=== PATIENT | male | born 2000 | race Caucasian/White ===

== ENCOUNTER 2025-05-31 12:46 | Emergency (ER) | payer BC, SELFPAY ==
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
--- NOTE | 2025-05-31 12:49 | ECG_ITS ---
Test Date: 2025-05-31 13:03:32 Measurements Intervals [place] Rate: 130 P: 190 [place]: 189 QRS: 25 QRSD: 96 T: 21 QT: 317 QTc: 467 Interpretive Statements SINUS TACHYCARDIA ABNORMAL RHYTHM ECG No previous ECG available for comparison Electronically Signed On 06-01-2025 11:33:20 CDT by Joaquim Crooks M.D.
--- OUTSIDE RECORDS SUMMARY | 2025-05-31 12:50 | XMS_ITS | Clinical Summary ---
Author Organization [facility] Address [address] [place] [address] Care Team Providers Care Knitter Wire Mesh Name Role Phone Adriana Iraheta MD Primary Care Provider [phone] Social History Tobacco Use Types Packs/Day Years Used Date Smoking Tobacco: Never Assessed Sex and Gender Information Value Date Recorded Sex Assigned at Not on file Legal Sex Male 11:41 AM CDT Gender Identity Not on file Sexual Orientation Not on file Plan of Treatment Health Maintenance Due Date Last Done Comments Annual Physical 2004 HPV Vaccines (1 - Male 3-dos e series) 2016 Meningococcal B Vaccine (1 o f 2 - Standard) 2017 Hepatitis C 2019 DTaP, Tdap and Td Vaccines ( 1 - Tdap) 2020 Hepatitis B Vaccines (1 of 3 - 19+ 3-dose series) 2020 COVID-19 Vaccine ( - 2023-2 5 season) 2024 Meningococcal Vaccine Aged Out No torey mariaelena eligible based on patient's age to complete this topic Pneumococcal Vaccine: Pediat rics (0 to 5 Years) and At-Risk Patients (6 to 49 Years) Aged Out No longer eligible b ased on patient's age to complete this topic RSV Immunizations Under 20 Months Aged Out No longer eligible based on patient's age to complete this topic [place] [address] [facility] Care Teams Knitter Wire Mesh Relationship Specialty Start Date End Date Adriana Iraheta MD [address] [facility] [address] [place] [address] PCP - General INTERNAL MEDICINE 02/02/24
--- OUTSIDE RECORDS SUMMARY | 2025-05-31 12:50 | XMS_ITS | Clinical Summary ---
Author Organization [facility] [employer] Address [address] [place] [address] Care Team Providers Care Ip Technology Transactions Attorney Name Role Phone Unavailable Primary Care Provider Unavailabl e Source Comments [facility],non-owned Affiliates and Associated Physician Practices is amultiple site organization consisting of ambulatory clinics and hospital sitesin [place], [place], [place] and [place]. This disclosure is being madepursuant to the Care Everywhere program and may not contain all information available regarding this patient. Last updated 18.[facility] [employer] Allergies Active Allergy Reactions Criticality Noted Date Comments Penicillins Urticaria Medium 01/21/2018 Medications * Be aware that medications may not be up to date on this document. Alwaysverify current medications with the patient. No known medications Social History Tobacco Use Types Packs/Day Years Used Date Smoking Tobacco: Passive Smo ke Exposure - Never Smoker Smokeless Tobacco: Never Sex and Gender Information Value Date Recorded Sex Assigned at Not on file Legal Sex Male 6:45 PM [employer]ES[employer] LO[employer] PROCESS[employer] Gender Identity Not on file Sexual Orientation Not on file Last Filed Vital Signs Vital Sign Reading Time Taken Comments Blood Pressure 100/62 01/21/2018 4:17 PM WHOLESALE LOAN PROCESSOR Pulse 74 01/21/2018 4:17 PM WHOLESALE LOAN PROCESSOR Temperature 36.9 C (98.4 F) 01/21/2018 4:17 PM WHOLESALE LOAN PROCESSOR Respiratory Rate 16 01/21/2018 4:17 PM WHOLESALE LOAN PROCESSOR Oxygen Saturation 98% 01/21/2018 4:17 PM WHOLESALE LOAN PROCESSOR Inhaled Oxygen Concentration - - Weight 89.4 kg (197 lb) 01/21/2018 4:17 PM WHOLESALE LOAN PROCESSOR Height 185.4 cm (6' 1) 01/21/2018 4:17 PM WHOLESALE LOAN PROCESSOR Body Mass Index 25.99 01/21/2018 4:17 PM WHOLESALE LOAN PROCESSOR Plan of Treatment Health Maintenance Due Date Last Done Comments HIV SCREENING 2016 HPV VACCINE (1 - Male 3-dose series) 2016 MENINGOCOCCAL (Group B) VACC INE SHARED DECISION-MAKING (1 of 2 - Standard) 2017 HEPATITIS C SCREENING 07/13/2019 DTAP/TDAP/TD VACCINES (1 - Tdap) 2020 HEPATITIS B VACCINE (1 of 3 - 19+ 3-dose series) 2020 COVID-19 VACCINE (1 - 2023-2 5 season) 2024 DEPRESSION SCREENING 11/23/2024 INFLUENZA VACCINE (#1) 2025 ZOSTER VACCINE (1 of 2) 2051 HIB VACCINE Aged Out No longer eligi ble based on patient's age to complete this topic MENINGOCOCCAL GROUPS A/C/Y/W VACCINE Aged Out No longer eligible b ased on patient's age to complete this topic PNEUMOCOCCAL VACCINE Aged Out No long er eligible based on patient's age to complete this topic
[2025-05-31 12:51] VITALS: BP 174/113; PULSE 133; RESP 20; O2SAT 100
[2025-05-31] MEDS: LACTATED RINGERS 1,000 ML 999 ML IV CONT ×2 (12:59→14:24)
[2025-05-31 13:11] LABS: Hematocrit 46.3 % (42.0-52.0); Hemoglobin 15.7 g/dL (14.0-18.0); Immature Granulocyte Percent A 0.7 % (0-0.5); Lymphocytes Absolute Auto 3.65 K/mm3 (0.9-3.2); Mean Corpuscular HGB Conc 33.9 g/dl (32-36); Mean Corpuscular Hemoglobin 27.4 pg (26-34); Mean Corpuscular Volume 80.7 fl (80-100); Nucleated Red Blood Cells Absolute Auto 0.000 K/mm3 (0.0-0.012); Nucleated Red Blood Cells Perc 0.0 % (0.0-0.2); Platelet Count Result 262 k/mm3 (150-375); Red Blood Count 5.74 M/mm3 (4.6-6.20); White Blood Count 13.1 K/mm3 (4.5-10.0)
[2025-05-31 13:21] LABS: Alanine Aminotransferase 143 U/L (6-50); Albumin Level 4.7 g/dL (3.5-5.1); Alkaline Phosphatase 144 U/L (38-126); Anion Gap 11 mmol/L (4-12); Aspartate Amino Transferase 105 U/L (17-59); Bilirubin,Total 0.4 mg/dL (0.2-1.3); Blood Urea Nitrogen 7 mg/dL (9-20); Calcium 10.2 mg/dL (8.4-10.2); Carbon Dioxide 25 mmol/L (22-30); Chloride 105 mmol/L (98-107); Estimated Glomerular Filt Rate > 60; Glucose 111 mg/dL (65-110); Lipase 73 U/L (23-300); Potassium 4.1 mmol/L (3.4-5.0); Sodium 141 mmol/L (137-145); Total Protein 8.7 g/dL (6.3-8.2)
[2025-05-31 13:25] LABS: INR 1.0; Prothrombin Time 13.4 Seconds (11.1-14.7)
[2025-05-31 13:26] LABS: Partial Thromboplastin Time 28.7 Seconds (22.3-36.8)
[2025-05-31] MEDS: LORazepam INJ (*CRX) 2 MG/ML VIAL 1 MG IV PUSH (13:32)
[2025-05-31 13:33] LABS: Troponin I < 0.012 ng/mL (0.000-0.034)
--- NOTE | 2025-05-31 13:45 | ED.GENADULT ---
HPI - General Adult General Chief complaint: Chest Pain Stated complaint: stabbing chest pain, palpitations Time Seen by Provider: 05/31/25 12:51 History of Present Illness HPI narrative: 24-year-old male present to the emergency department for evaluation for left-sided chest pain with associated anxiety. Patient reports he does have a longstanding history of anxiety. Patient also reports that he did have approximately 15 beers and suspects he may be dehydrated. Patient was working in the sun today. Began having increased heart rate and left-sided chest pain. Upon arrival to the emergency department patient reports he does feel improved. Patient denies any current chest pain. Patient was anxious appearing. Patient does take BuSpar, Lexapro, metoprolol Related Data Allergies Allergy/AdvReac Type Severity Reaction Status Date / Time Penicillins Allergy Unknown Unknown Verified 08/10/19 20:50 Review of Systems Review of Systems: All systems reviewed & are unremarkable except as noted in HPI and below Exam Narrative: APPEARANCE: Well appearing, no pain, no distress, well-nourished. HEAD: normocephalic, atraumatic. EYES: PERRLA/EOMI, conjunctivae clear. NOSE: Normal no drainage EARS:TMS clear with good light reflex. THROAT: Pharynx clear, no exudate. NECK: Supple. No adenopathy, no masses. RESPIRATORY: Airway patent, respirations nonlabored. Clear to auscultation bilaterally, no rales, rhonchi, wheezing. CARDIOVASCULAR: Regular rate and rhythm without murmurs rubs or gallops. ABDOMINAL: Soft, nontender, nondistended, normal bowel sounds MUSCULOSKELETAL: Moves all extremities. Strength/ROM intact, No edema, No calf tenderness. NEURO: Alert. Cranial nerves II through XII intact. Good gait. Good coordination SKIN: Warm, dry. Normal Color PSYCHIATRIC: Mildly anxious affect Course Vital Signs Vital signs: Vital Signs Pulse Rate 133 H 05/31/25 12:51 Respiratory Rate 05/31/25 12:51 Blood Pressure 174/113 H 05/31/25 12:51 Pulse Oximetry 100 05/31/25 12:51 Oxygen Delivery Room Air 05/31/25 12:51 Temperature 98.0 F 05/31/25 14:25 Pulse Rate 118 H 05/31/25 14:25 Respiratory Rate 05/31/25 14:25 Blood Pressure 132/83 05/31/25 14:25 Pulse Oximetry 100 05/31/25 14:25 Oxygen Delivery Room Air 05/31/25 12:51 Medical Decision Making [facility] Narrative Medical decision making narrative: 24-year-old male presents to the emergency department for evaluation for heart palpitations and chest pain. Patient is afebrile but does have a leukocytosis of 13.1. Hemoglobin of 15.7. Patient's INR is 1.0. Patient's D-dimer was 0.30. No significant acute abnormalities his electrolytes, patient has a normal T bili but does have mild elevated AST ALT and alk-phos, slight be secondary to alcohol intoxication. Patient has negative lipase. Patient's troponin was negative. Low concern for ACS. No concern for pulmonary embolism with a negative dimer. Patient did feel improved with treatment of 2 L of lactated Ringer's. Chest x-ray shows no acute process. Differential Diagnosis Differential Diagnosis: Anxiety, dehydration, pulmonary embolism, pneumonia, tachycardia Vital Signs Vital Signs: Vital Signs Pulse Rate 133 H 05/31/25 12:51 Respiratory Rate 05/31/25 12:51 Blood Pressure 174/113 H 05/31/25 12:51 Pulse Oximetry 100 05/31/25 12:51 Oxygen Delivery Room Air 05/31/25 12:51 Temperature 98.0 F 05/31/25 14:25 Pulse Rate 118 H 05/31/25 14:25 Respiratory Rate 20 05/31/25 14:25 Blood Pressure 132/83 05/31/25 14:25 Pulse Oximetry 100 05/31/25 14:25 Oxygen Delivery Room Air 05/31/25 12:51 Lab Data Lab results reviewed: Yes I reviewed the patient's lab results. 05/31/25 13:02 05/31/25 13:02 Labs: Lab Results 05/31/25 05/31/25 05/31/25 Range/Units 13:02 13:02 13:02 WBC 13.1 H (4.5-10.0) K/mm3 RBC 5.74 (4.6-6.20) M/mm3 Hgb 15.7 (14.0-18.0) g/dL Hct 46.3 (42.0-52.0) % MCV 80.7 (80-100) fl MCH 27.4 (26-34) pg MCHC 33.9 (32-36) g/dl RDW 12.4 (11.5-14.5) % Plt Count 262 (150-375) k/mm3 MPV 11.1 H (7.4-10.4) fl Immature Gran % (Auto) 0.7 H (0-0.5) % Neut % (Auto) 63.9 (45.5-73.1) % Lymph % (Auto) 27.8 (18.3-44.2) % Sioux % (Auto) 6.3 (2.6-8.5) % Eos % (Auto) 0.7 (0-4.4) % Baso % (Auto) 0.6 (0.2-1.2) % Lymph # (Auto) 3.65 H (0.9-3.2) K/mm3 [place]oux # (Auto) 0.8 H (0.1-0.6) K/mm3 Eos # (Auto) 0.1 (0-0.3) K/mm3 Baso # (Auto) 0.1 (0.0-0.1) K/mm3 Abs Immat Gran (auto) 0.09 H (0.00-0.031) K/mm3 Absolute Neuts (auto) 8.4 H (1.3-6.7) K/mm3 Absolute Nucleated RBC 0.000 (0.0-0.012) K/mm3 Nucleated RBC % 0.0 (0.0-0.2) % PT 13.4 (11.1-14.7) Seconds INR 1.0 APTT 28.7 (22.3-36.8) Seconds D-Dimer 0.30 Cancelled (<0.48) ug/mL Sodium 141 (137-145) mmol/L Potassium 4.1 (3.4-5.0) mmol/L Chloride 105 (98-107) mmol/L Carbon Dioxide 25 (22-30) mmol/L Anion Gap 11 (4-12) mmol/L BUN 7 L (9-20) mg/dL Creatinine 0.94 (0.7-1.3) mg/dL Estim Creat Clear Calc Not Reportable Estimated GFR > 60 (59 - ) Glucose 111 H (65-110) mg/dL Calcium 10.2 (8.4-10.2) mg/dL Total Bilirubin 0.4 (0.2-1.3) mg/dL AST 105 H (17-59) U/L ALT 143 H (6-50) U/L Alkaline Phosphatase 144 H (38-126) U/L Troponin I < 0.012 Cancelled (0.000-0.034) ng/mL Total Protein 8.7 H (6.3-8.2) g/dL Albumin 4.7 (3.5-5.1) g/dL Lipase 73 (23-300) U/L Imaging Data Radiologist's impression: Impressions Chest X-Ray 05/31/25 13:35 IMPRESSION: No acute process. ECG Data EKG #1: EKG Interpretation: tachycardia, sinus rhythm, no ectopy, no ST changes, normal QRS, normal QT and NL axis Discharge Plan Discharge Clinical Impression: Chest pain, Heart palpitations, Dehydration Patient Disposition: Home Condition: Stable Instructions: Antibiotic Form, Chest Pain (ED), Heart Palpitations (DC) Additional Instructions: Drink plenty of fluids. Avoid alcohol consumption. Have close follow-up with your primary care physician for additional outpatient testing. Patient Language: Northern Irish Follow-up/Referrals: PHYSICIAN NOT ON STAFF,NONSTAFF [Primary Care Provider] - Stand Alone Forms: Work/School Release IP
--- OUTSIDE RECORDS SUMMARY | 2025-05-31 13:53 | XMS_ITS | Clinical Summary ---
Author Organization [facility] Address [address] [place] [address] Care Team Providers Care Lathe Machinist Name Role Phone Adriana Iraheta MD Primary Care Provider [phone] Social History Tobacco Use Types Packs/Day Years [...] to complete this topic [place] [address] [place] [address] [facility] Care Teams Lathe Machinist Relationship Specialty Start Date End Date Adriana Iraheta MD [address] [facility] [address] [place] [address] PCP - General INTERNAL MEDICINE 02/02/24
--- OUTSIDE RECORDS SUMMARY | 2025-05-31 13:53 | XMS_ITS | Clinical Summary ---
Author Organization [facility] [employer] Address [address] [place] [address] Care Team Providers Care Supportability Engineer Name Role Phone Unavailable Primary Care Provider Unavailabl e Source Comments [facility],non-owned Affiliates and Associated Physician Practices is amultiple site organization consisting of ambulatory clinics and hospital sitesin [place], [place], [place] and [place]. This disclosure is being madepursuant to the Care Everywhere program and may not contain all information available regarding this patient. Last updated 18.[facility] [employer] Allergies Active Allergy Reactions Criticality Noted Date [...] on file Legal Sex Male 6:45 PM [employer] Gender Identity Not on file Sexual Orientation Not on file Last Filed Vital Signs Vital Sign Reading Time Taken Comments Blood Pressure 100/62 01/21/2018 4:17 PM [employer] Pulse 74 01/21/2018 4:17 PM [employer] Temperature 36.9 C (98.4 F) 01/21/2018 4:17 PM [employer] Respiratory Rate 16 01/21/2018 4:17 PM [employer] Oxygen Saturation 98% 01/21/2018 4:17 PM [employer] Inhaled Oxygen Concentration - - Weight 89.4 kg (197 lb) 01/21/2018 4:17 PM [employer] Height 185.4 cm (6' 1) 01/21/2018 4:17 PM [employer] Body Mass Index 25.99 01/21/2018 4:17 PM [employer] Plan of Treatment Health Maintenance Due Date [...]
--- OUTSIDE RECORDS SUMMARY | 2025-05-31 13:54 | XMS_ITS | Data Portability ---
Author Organization [facility], [employer] Address [address] [place] [address] Assessment Encounter Date Assessment Date Assessment LastModified by Organization Details LastModified Time 01/04/2024 01/04/2024 New patient presented for admission to the practice. Studies ordered as below. Discussed plan with patient, who expressed understanding . Follow up as noted below. [email or web address] Not available 01/04/2024 15:08:00 02/10/2024 02/10/2024 Patient presented for follow up. Studies ordered as below. Discussed plan with patient/cony resendez, who expressed understanding . Follow up as noted below. Not available 02/10/2024 09:22:21 05/18/2025 05/18/2025 Patient presented for follow up. Studies ordered as below. Discussed plan with patient/careg dipti, who expressed understanding . Follow up as noted below. Not available 05/18/2025 14:03:18 Plan of Treatment Reminders Order Date Submit Date Provider Last Modified By Organization Details Last Modified Time Details Appointments ESTABLISH ED PATIENT 15 2024 01:15P Duran Iraheta MD Not available Not available Not available Lab lipid panel w/ direct LDL, serum 2024 025 [facility], [address], [place], [address], 05/18/2025 14:35:22 TSH + free T4, serum 2024 025 [facility], [address], [place], [address], 05/18/2025 14:35:21 D-dimer, quant, plasma 2024 025 [facility], [address], [place], [address], 05/18/2025 14:35:20 CMP, serum or plasma 2024 025 [facility], [address], [place], [address], 05/18/2025 14:35:21 CBC w/ auto diff 2024 025 [facility], [address], [place], [address], 05/18/2025 14:35:21 wbc, stool 2024 025 [facility], [address] [facility], [place], [address], 05/18/2025 14:45:26 amylase + lipase, serum 2024 025 [facility], [address] [facility], [place], [address], 05/18/2025 14:45:27 D-dimer, quant, plasma 2023 024 [facility], [address], [place], [address], 02/10/2024 09:56:08 CMP, serum or plasma 2023 024 [facility], [address], [place], [address], 02/12/2024 11:17:39 CBC w/ auto diff 2023 024 [facility], [address], [place], [address], 03/17/2024 00:32:06 lipid panel w/ direct LDL, serum 2023 024 [facility], [address] [facility], [place], [address], 01/12/2024 06:14:13 hepatitis C Ab, serum 2023 024 [facility], [address] [facility], [place], [address], 01/12/2024 06:14:13 CMP, serum or plasma 2023 024 [facility], [address] [facility], [place], [address], 01/12/2024 16:33:00 TSH + free T4, serum 2023 024 [facility], [address] [facility] [facility], [place], [address], 01/12/2024 06:14:13 CBC w/ auto diff 2023 024 [facility], [address] [facility], [place], [address], 03/17/2024 00:38:13 magnesium , serum or plasma 2023 024 [facility], [address] [facility], [place], [address], 03/17/2024 00:29:11 TSH, serum or plasma 2023 024 [facility], [address] [facility], [place], [address], 01/12/2024 06:14:13 hemoglobi n A1c, QN, blood 2023 024 [facility], [address] [facility], [place], [address], 01/12/2024 06:14:13 Referral psychiatr ist referral 2024 025 [email or web address] Marques Brito MD, [address], [address], [place], [address], 05/18/2025 14:49:35 cardiolog ist referral 2024 025 farzana Lara MD, [address] [place], [address], 05/18/2025 14:49:35 pulmonolo gist referral 2024 025 [email or web address] Johnny Kearns MD, [address] [place], [address], 05/18/2025 14:49:35 cardiolog ist referral 2023 024 MORENA Lara MD, [address] [place], [address], 02/04/2025 04:03:20 otolaryng ologist referral 2023 024 MORENA Mann MD, [address] [place], [address], 12/29/2024 07:19:[address] referral 2023 024 MORENA Not available 12/29/2024 07:19:14 cardiolog ist referral 2023 024 MORENA Bruce MD, [address], [place], [address], 12/29/2024 07:19:14 dermatolo gist referral [address] [facility], [address] , [place], [address], 12/29/2024 07:19:15 Procedures None recorded. Surgeries None recorded. Imaging XR, chest, 2 view 2024 025 [facility]), [address] , [address], [place], [address], 05/25/2025 07:17:57 XR, chest, 2 view 2023 024 MORENA Not available 02/17/2024 04:11:55 US, echocardi ogram 2023 024 [facility], [facility], [address], [place], [address], 02/10/2024 11:38:34 XR, chest, 2 view 2023 024 MORENA Not available 01/11/2024 04:10:40 electroca rdiogram 2023 024 [facility], [facility], [address], [place], [address], 01/05/2024 09:00:27 US, echocardi ogram 2023 024 [facility], [facility], [address], [place], [address], 01/04/2024 18:55:42 home sleep study 2023 024 [facility], [address], [address], [place], [address], 02/09/2024 10:16:57 Medication Orders Vraylar 1.5 mg capsule 2024 025 [facility] #[id number], [address], [place], [address], 05/24/2025 20:54:59 metoprolo l succinate ER 25 mg tablet,ex tended release 24 hr 2024 025 [facility] #[id number], [address], [place], [address], 05/18/2025 14:34:47 metoprolo l succinate ER 25 mg tablet,ex tended release 24 hr 2023 024 [id number], [address], [place], [address], 02/10/2024 09:54:55 Saline Mist 0.65 % nasal spray aerosol 2023 024 [id number], [address], [place], [address], 02/10/2024 09:43:47 escitalop kirit 10 mg tablet 2023 024 [id number], [address], [place], [address], 01/04/2024 15:32:56 buspirone 10 mg tablet 2023 024 [id number], [address], [place], [address], 01/04/2024 15:32:56 metoprolo l succinate ER 25 mg tablet,ex tended release 24 hr 2023 024 [id number], [address], [place], [address], 01/04/2024 15:32:55 Patient TargetsNo targets recorded. Patient Instructions Encounter Date Encounter Id Patient Instructions Last Modified By Organization Details Last Modified Time 01/04/2024 [id number] smoking cessatio n counseling, greater than 3 minutes up to 10 minutes* [email or web address] Not available 01/05/2024 15:53:58 spirometry testing* MORENA Not available 01/04/2024 19:37:58 infection from tattoos: care instructions [email or web address] Not available 01/04/2024 15:32:49 snoring: care instructions mshenouda Not available 01/04/2024 15:32:50 body mass index: care instructions [email or web address] Not available 01/04/2024 15:32:49 learning about healthy weight mshenouda Not available 01/04/2024 15:32:50 02/10/2024 [id number] body mass index: care instructions [email or web address] Not available 02/10/2024 09:55:42 learning about healthy weight mshenouda Not available 02/10/2024 09:55:42 05/18/2025 [id number] smoking cessatio n counseling, greater than 3 minutes up to 10 minutes* [email or web address] Not available 05/18/2025 14:35:06 snoring: care instructions [email or web address] Not available 05/18/2025 14:34:45 body mass index: care instructions [email or web address] Not available 05/18/2025 14:34:45 learning about healthy weight mshenouda Not available 05/18/2025 14:34:45 Reason for Referral Wheel Alignment Mechanic Referral for Ta chycardia Referring Physician: Adriana Iraheta [facility], Encounter Date: 01/04/2024 Soil Analyst Referral for Ben lt health examination Referring Physician: Adriana Iraheta [facility], Encounter Date: 01/04/2024 Barrow Worker Referral fo r Anterior epistaxis Referring Physician: Adriana Iraheta [facility], Encounter Date: 01/04/2024 Health Outcomes Liaison Referral for A cne Referring Physician: Adriana Iraheta [facility], Encounter Date: 01/04/2024 Wheel Alignment Mechanic Referral for Ta chycardia Referring Physician: Adriana Iraheta [facility], Encounter Date: 02/10/2024 Wheel Alignment Mechanic Referral for Ta chycardia Referring Physician: Adriana Iraheta [facility], Encounter Date: 05/18/2025 Mirror Painter Referral for S noring Referring Physician: Adriana Iraheta [facility], Encounter Date: 05/18/2025 Psychiatrist Referral for Mi xed anxiety and depressive disorder Referring Physician: Adriana Iraheta [facility], Encounter Date: 05/18/2025 Results Created Date Observation Date Name Description Value Unit Range Abnormal Flag Note LastModifiedBy Organization Detail LastModifiedTime 01/04/20 24 01/04/2024 edmundo metry testi ng* Spirometry Not Available [facility], [facility] [address], [place], [address], 01/04/2024 15:15:01 01/11/20 24 01/11/2024 HEMOG LOBIN A1C hemoglobin A1C 5.7 % 4.8-5. 6 high SYLVIA L RANGE BASED ON DEDE COL 2 (DCCT /NGSP ): Non-D iabet ic: < 5.7% Pre-D iabet es: 5.7 - 6.4% Diabe julianne: => 6.5% GLYCE GERARD CONTR OL: < 7.0% Not Available [facility] [address], [place], [address], 01/12/2024 16:32:59 01/11/20 24 01/11/2024 HEMOG LOBIN A1C estimated average glucose 118 Not Available [facility] [address], [place], [address], 01/12/2024 16:32:59 01/11/20 24 01/11/2024 CBC WITH AUTO- DIFFE RENTI AL WBC 11.0 10*3/ uL 3.4-10 .8 high Not Available [facility] [address], [place], [address], 01/12/2024 16:33:00 01/11/20 24 01/11/2024 CBC WITH AUTO- DIFFE RENTI AL RBC 5.39 10*6/ uL 4.20-5 .80 Not Available [facility] [address], [place], [address], 01/12/2024 16:33:00 01/11/20 24 01/11/2024 CBC WITH AUTO- DIFFE RENTI AL HGB 15.5 g/dL 12.6-1 7.7 Not Available [facility] [address] [facility] [address], [place], [address], 01/12/2024 16:33:00 01/11/20 24 01/11/2024 CBC WITH AUTO- DIFFE RENTI AL HCT 44.9 % 37.5-5 1.0 Not Available [facility] [address] [facility] [address], [place], [address], 01/12/2024 16:33:00 01/11/20 24 01/11/2024 CBC WITH AUTO- DIFFE RENTI AL MCV 83 fL 79-97 Not Available [facility] [address] [facility] [address], [place], [address], 01/12/2024 16:33:00 01/11/20 24 01/11/2024 CBC WITH AUTO- DIFFE RENTI AL MCH 28.8 pg 26.6-3 3.0 Not Available [facility] [address] [facility] [address], [place], [address], 01/12/2024 16:33:00 01/11/20 24 01/11/2024 CBC WITH AUTO- DIFFE RENTI AL MCHC 34.5 g/dL 31.5-3 5.7 Not Available [facility] [address], [place], [address], 01/12/2024 16:33:00 01/11/20 24 01/11/2024 CBC WITH AUTO- DIFFE RENTI AL RDW 11.9 % 11.5-1 4.5 Not Available [facility] [address] [facility] [address], [place], [address], 01/12/2024 16:33:00 01/11/20 24 01/11/2024 CBC WITH AUTO- DIFFE RENTI AL platelets 276 10*3/ uL 150-40 0 Not Available [facility] [address], [place], [address], 01/12/2024 16:33:00 01/11/20 24 01/11/2024 CBC WITH AUTO- DIFFE RENTI AL MPV 13 fL 9-13 Not Available [facility] [address] [facility] [address], [place], [address], 01/12/2024 16:33:00 01/11/20 24 01/11/2024 CBC WITH AUTO- DIFFE RENTI AL neutrophils 55.5 % 40.0-7 4.0 Not Available [facility] [address] [facility] [address], [place], [address], 01/12/2024 16:33:00 01/11/20 24 01/11/2024 CBC WITH AUTO- DIFFE RENTI AL absolute neutrophils 6.13 10*3/ uL 1.40-7 .00 Not Available [facility] [address] [facility] [address], [place], [address], 01/12/2024 16:33:00 01/11/20 24 01/11/2024 CBC WITH AUTO- DIFFE RENTI AL lymphocytes 36.3 % 14.0-4 6.0 Not Available [facility] [address] [facility] [address], [place], [address], 01/12/2024 16:33:00 01/11/20 24 01/11/2024 CBC WITH AUTO- DIFFE RENTI AL absolute lymphocytes 4.00 10*3/ uL 0.70-3 .10 high Not Available [facility] [address] [facility] [address], [place], [address], 01/12/2024 16:33:00 01/11/20 24 01/11/2024 CBC WITH AUTO- DIFFE RENTI AL monocytes 6.4 % 4.0-12 .0 Not Available [facility] [address] [facility] [address], [place], [address], 01/12/2024 16:33:00 01/11/20 24 01/11/2024 CBC WITH AUTO- DIFFE RENTI AL absolute monocytes 0.70 10*3/ uL 0.10-0 .90 Not Available [facility] [address] [facility] [address], [place], [address], 01/12/2024 16:33:00 01/11/20 24 01/11/2024 CBC WITH AUTO- DIFFE RENTI AL eosinophils 0.5 % 0.0-5. [address] [facility] [address] [facility] [address], [place], [address], 01/12/2024 16:33:00 01/11/20 24 01/11/2024 CBC WITH AUTO- DIFFE RENTI AL absolute eosinophils 0.05 10*3/ uL 0.00-0 .40 Not Available [facility] [address] [facility] [address], [place], [address], 01/12/2024 16:33:00 01/11/20 24 01/11/2024 CBC WITH AUTO- DIFFE RENTI AL basophils 0.9 % 0.0-3. [address] [facility] [address] [facility] [address], [place], [address], 01/12/2024 16:33:00 01/11/20 24 01/11/2024 CBC WITH AUTO- DIFFE RENTI AL absolute basophils 0.10 10*3/ uL 0.00-0 .[address] [facility] [address] [facility] [address], [place], [address], 01/12/2024 16:33:00 01/11/20 24 01/11/2024 CBC WITH AUTO- DIFFE RENTI AL imm. gran. 0.4 % 0.0-2. 0 Not Available [facility] [address] [place] [address] [address], [place], [address], 01/12/2024 16:33:00 01/11/20 24 01/11/2024 CBC WITH AUTO- DIFFE RENTI AL abs. imm. gran. 0.04 10*3/ uL 0.00-0 .10 Not Available [facility] [address] [facility] [address], [place], [address], 01/12/2024 16:33:00 01/11/20 24 01/11/2024 COMPR EHENS ELIU METAB OLIC PANEL sodium 143 mmol/ L 134-14 4 Not Available [facility] [address] [facility] [address], [place], [address], 01/12/2024 16:33:00 01/11/20 24 01/11/2024 COMPR EHENS ELIU METAB OLIC PANEL potassium 4.1 mmol/ L 3.5-5. 2 Not Available [facility] [address] [facility] [address], [place], [address], 01/12/2024 16:33:00 01/11/20 24 01/11/2024 COMPR EHENS ELIU METAB OLIC PANEL chloride 104 mmol/ L 97-108 Not Available [facility] [address] [facility], [place], [address], 01/12/2024 16:33:00 01/11/20 24 01/11/2024 COMPR EHENS ELIU METAB OLIC PANEL carbon dioxide (co2) 24.0 mmol/ L 18.0-2 9.0 Not Available [facility] [address] [facility] [address], [place], [address], 01/12/2024 16:33:00 01/11/20 24 01/11/2024 COMPR EHENS ELIU METAB OLIC PANEL glucose 90 mg/dL 65-99 Sylvia l Fasti ng: < 100 mg/dL Impai red Fasti n - 125 mg/dL Diagn ostic of Diabe julianne: => 126 mg/dL Ameri can Diabe julianne Assoc iatio n, 2008 Not Available [facility] [address] [facility] [address], [place], [address], 01/12/2024 16:33:00 01/11/20 24 01/11/2024 COMPR EHENS ELIU METAB OLIC PANEL urea nitrogen (BUN) 9 mg/dL 6-20 Not Available [facility] [address], [place], [address], 01/12/2024 16:33:00 01/11/20 24 01/11/2024 COMPR EHENS ELIU METAB OLIC PANEL creatinine 1.31 mg/dL 0.76-1 .27 high Not Available [facility] [address] [facility] [address], [place], [address], 01/12/2024 16:33:00 01/11/20 24 01/11/2024 COMPR EHENS ELIU METAB OLIC PANEL eGFR for nonafrican AM 68 mL/mi nute/ 1.73_ m2 >59 Not Available [facility] [address] [facility] [address], [place], [address], 01/12/2024 16:33:00 01/11/20 24 01/11/2024 COMPR EHENS ELIU METAB OLIC PANEL eGFR for AM 83 mL/mi nute/ 1.73_ m2 >59 MDRD Study Equat ion: The calcu lated GFR is NOT appli cable for pedia tric (< 18 years old) and > 70 year old patie nts and patie nts that are NOT of [place] . Not Available [facility] [address] [facility] [address], [place], [address], 01/12/2024 16:33:00 01/11/20 24 01/11/2024 COMPR EHENS ELIU METAB OLIC PANEL calcium 10.7 mg/dL 8.7-10 .2 high Not Available [facility] [address] [facility] [address], [place], [address], 01/12/2024 16:33:00 01/11/20 24 01/11/2024 COMPR EHENS ELIU METAB OLIC PANEL protein, total 7.4 gm/dL 6.4-8. 3 Not Available [facility] [address] [facility] [address], [place], [address], 01/12/2024 16:33:00 01/11/20 24 01/11/2024 COMPR EHENS ELIU METAB OLIC PANEL albumin 4.8 gm/dL 3.5-5. [address] [facility] [address] [facility] [address], [place], [address], 01/12/2024 16:33:00 01/11/20 24 01/11/2024 COMPR EHENS ELIU METAB OLIC PANEL bilirubin, total 0.60 mg/dL 0.00-1 .[address] [facility] [address] [facility] [address], [place], [address], 01/12/2024 16:33:00 01/11/20 24 01/11/2024 COMPR EHENS ELIU METAB OLIC PANEL alkaline phosphatase (ALP) 107 U/L 39-117 Not Available [facility] [address] [facility] [address], [place], [address], 01/12/2024 16:33:00 01/11/20 24 01/11/2024 COMPR EHENS ELIU METAB OLIC PANEL aspartate aminotransfe rase (AST) 35 U/L 0-40 Not Available [facility] [address] [facility] [address], [place], [address], 01/12/2024 16:33:00 01/11/20 24 01/11/2024 COMPR EHENS ELIU METAB OLIC PANEL alanine aminotransfe rase (ALT) 61 U/L 0-41 high Not Available [facility] [address] [facility] [address], [place], [address], 01/12/2024 16:33:00 01/11/20 24 01/11/2024 COMPR EHENS ELIU METAB OLIC PANEL A/G ratio (calculated) 1.8 ratio 1.0-2. [address] [facility] [address] [facility] [address], [place], [address], 01/12/2024 16:33:00 01/11/20 24 01/11/2024 COMPR EHENS EILU METAB OLIC PANEL globulin (calculated) 2.6 gm/dL 1.5-3. 8 Not Available [facility] [address] [facility] [address], [place], [address], 01/12/2024 16:33:00 01/11/20 24 01/11/2024 COMPR EHENS ELIU METAB OLIC PANEL BUN/creatini ne ratio (calculated) 6.9 ratio 8.0-20 .0 low Not Available [facility] [address] [facility] [address], [place], [address], 01/12/2024 16:33:00 01/11/20 24 01/11/2024 COMPR EHENS ELIU METAB OLIC PANEL serum hemolysis index NORMAL index normal Not Available [facility] [address] [facility] [address], [place], [address], 01/12/2024 16:33:00 01/11/20 24 01/11/2024 FREE T4 thyroxine (T4), free 1.29 NG/dL 0.82-1 .77 Not Available [facility] [address] [facility] [address], [place], [address], 01/12/2024 16:33:01 01/11/20 24 01/11/2024 HEPAT ITIS C VIRUS (HCV) ANTIB ALCON HCV Ab, qualitative NON-RE ACTIVE non-re active All first time posit eliu HCV antib alcon test is confi rmed with HCV Nucle ic Acid Ampli catio n (RENE) test per CDC recom menda tion. Not Available [facility] [address] [facility] [address], [place], [address], 01/12/2024 16:33:01 01/11/20 24 01/11/2024 LIPID PANEL W/ CALC. LDL cholesterol, total 144 mg/dL 100-19 9 Not Available [facility] [address] [facility] [address], [place], [address], 01/12/2024 16:33:02 01/11/20 24 01/11/2024 LIPID PANEL W/ CALC. LDL HDL cholesterol 37 mg/dL =>40 Not Available [facility] [address] [facility] [address], [place], [address], 01/12/2024 16:33:02 01/11/20 24 01/11/2024 LIPID PANEL W/ CALC. LDL LDL cholesterol (calculated) 87 mg/dL 0-99 Not Available [facility] [address] [facility] [address], [place], [address], 01/12/2024 16:33:02 01/11/20 24 01/11/2024 LIPID PANEL W/ CALC. LDL triglyceride s 99 mg/dL 50-149 Not Available [facility] [address] [facility] [address], [place], [address], 01/12/2024 16:33:02 01/11/20 24 01/11/2024 LIPID PANEL W/ CALC. LDL chol/HDL ratio (calculated) 3.89 ratio 0.00-5 .00 Not Available [facility] [address] [facility] [address], [place], [address], 01/12/2024 16:33:02 01/11/20 24 01/11/2024 LIPID PANEL W/ CALC. LDL VLDL cholesterol (calculated) 20 mg/dL 5-40 Not Available [facility] [address] [facility] [address], [place], [address], 01/12/2024 16:33:02 01/11/20 24 01/11/2024 MAGNE SIUM magnesium 1.6 mg/dL 1.6-2. 6 Not Available [facility] [address] [facility] [address], [place], [address], 01/12/2024 16:33:03 01/11/20 24 01/11/2024 THYRO ID-ST IM. HORMO NE (TSH) , HIGH- SENSI TIVE thyroid-stim . hormone (TSH), hs 1.72 uIU/m L 0.27-4 .20 Not Available [facility] [address] [facility] [address], [place], [address], 01/12/2024 16:33:03 02/10/20 24 02/10/2024 CBC WITH AUTO- DIFFE RENTI AL WBC 8.8 10*3/ uL 3.4-10 .8 Not Available [facility] [address] [facility] [address], [place], [address], 02/12/2024 11:17:37 02/10/20 24 02/10/2024 CBC WITH AUTO- DIFFE RENTI AL RBC 5.25 10*6/ uL 4.20-5 .80 Not Available [facility] [address] [facility] [address], [place], [address], 02/12/2024 11:17:37 02/10/20 24 02/10/2024 CBC WITH AUTO- DIFFE RENTI AL HGB 14.7 g/dL 12.6-1 7.7 Not Available [facility] [address] [facility] [address], [place], [address], 02/12/2024 11:17:37 02/10/20 24 02/10/2024 CBC WITH AUTO- DIFFE RENTI AL HCT 45.0 % 37.5-5 1.0 Not Available [facility] [address] [facility] [address], [place], [address], 02/12/2024 11:17:37 02/10/20 24 02/10/2024 CBC WITH AUTO- DIFFE RENTI AL MCV 86 fL 79-97 Not Available [facility] [address] [facility] [address], [place], [address], 02/12/2024 11:17:37 02/10/20 24 02/10/2024 CBC WITH AUTO- DIFFE RENTI AL MCH 28.0 pg 26.6-3 3.0 Not Available [facility] [address], [place], [address], 02/12/2024 11:17:37 02/10/20 24 02/10/2024 CBC WITH AUTO- DIFFE RENTI AL MCHC 32.7 g/dL 31.5-3 5.7 Not Available [facility] [address], [place], [address], 02/12/2024 11:17:37 02/10/20 24 02/10/2024 CBC WITH AUTO- DIFFE RENTI AL RDW 12.1 % 11.5-1 4.5 Not Available [facility] [address], [place], [address], 02/12/2024 11:17:37 02/10/20 24 02/10/2024 CBC WITH AUTO- DIFFE RENTI AL platelets 237 10*3/ uL 150-40 0 Not Available [facility] [address], [place], [address], 02/12/2024 11:17:37 02/10/20 24 02/10/2024 CBC WITH AUTO- DIFFE RENTI AL MPV 13 fL 9-13 Not Available [facility] [address] [facility] [address], [place], [address], 02/12/2024 11:17:37 02/10/20 24 02/10/2024 CBC WITH AUTO- DIFFE RENTI AL neutrophils 58.6 % 40.0-7 4.0 Not Available [facility] [address], [place], [address], 02/12/2024 11:17:37 02/10/20 24 02/10/2024 CBC WITH AUTO- DIFFE RENTI AL absolute neutrophils 5.18 10*3/ uL 1.40-7 .00 Not Available [facility] [address], [place], [address], 02/12/2024 11:17:37 02/10/20 24 02/10/2024 CBC WITH AUTO- DIFFE RENTI AL lymphocytes 30.5 % 14.0-4 6.0 Not Available [facility] [address], [place], [address], 02/12/2024 11:17:37 02/10/20 24 02/10/2024 CBC WITH AUTO- DIFFE RENTI AL absolute lymphocytes 2.69 10*3/ uL 0.70-3 .10 Not Available [facility] [address] [facility] [address], [place], [address], 02/12/2024 11:17:37 02/10/20 24 02/10/2024 CBC WITH AUTO- DIFFE RENTI AL monocytes 8.5 % 4.0-12 .0 Not Available [facility] [address] [facility] [address], [place], [address], 02/12/2024 11:17:37 02/10/20 24 02/10/2024 CBC WITH AUTO- DIFFE RENTI AL absolute monocytes 0.75 10*3/ uL 0.10-0 .90 Not Available [facility] [address] [facility] [address], [place], [address], 02/12/2024 11:17:37 02/10/20 24 02/10/2024 CBC WITH AUTO- DIFFE RENTI AL eosinophils 1.5 % 0.0-5. 0 Not Available [facility] [address] [facility] [address], [place], [address], 02/12/2024 11:17:37 02/10/20 24 02/10/2024 CBC WITH AUTO- DIFFE RENTI AL absolute eosinophils 0.13 10*3/ uL 0.00-0 .40 Not Available [facility] [address] [facility] [address], [place], [address], 02/12/2024 11:17:37 02/10/20 24 02/10/2024 CBC WITH AUTO- DIFFE RENTI AL basophils 0.6 % 0.0-3. 0 Not Available [facility] [address] [facility] [address], [place], [address], 02/12/2024 11:17:37 02/10/20 24 02/10/2024 CBC WITH AUTO- DIFFE RENTI AL absolute basophils 0.05 10*3/ uL 0.00-0 .20 Not Available [facility] [address] [facility] [address], [place], [address], 02/12/2024 11:17:37 02/10/20 24 02/10/2024 CBC WITH AUTO- DIFFE RENTI AL imm. gran. 0.3 % 0.0-2. 0 Not Available [facility] [address] [facility] [address], [place], [address], 02/12/2024 11:17:37 02/10/20 24 02/10/2024 CBC WITH AUTO- DIFFE RENTI AL abs. imm. gran. 0.03 10*3/ uL 0.00-0 .10 Not Available [facility] [address] [facility] [address], [place], [address], 02/12/2024 11:17:37 02/10/20 24 02/10/2024 COMPR EHENS ELIU METAB OLIC PANEL sodium 143 mmol/ L 134-14 4 Not Available [facility] [address] [facility] [address], [place], [address], 02/12/2024 11:17:38 02/10/20 24 02/10/2024 COMPR EHENS ELIU METAB OLIC PANEL potassium 4.7 mmol/ L 3.5-5. 2 Not Available [facility] [address] [facility] [address], [place], [address], 02/12/2024 11:17:38 02/10/20 24 02/10/2024 COMPR EHENS ELIU METAB OLIC PANEL chloride 104 mmol/ L 97-108 Not Available [facility] [address] [facility] [address], [place], [address], 02/12/2024 11:17:38 02/10/20 24 02/10/2024 COMPR EHENS ELIU METAB OLIC PANEL carbon dioxide (co2) 27.0 mmol/ L 18.0-2 9.0 Not Available [facility] [address] [facility] [address], [place], [address], 02/12/2024 11:17:38 02/10/20 24 02/10/2024 COMPR EHENS ELIU METAB OLIC PANEL glucose 90 mg/dL 65-99 Sylvia l Fasti ng: < 100 mg/dL Impai red Fasti n - 125 mg/dL Diagn ostic of Diabe julianne: => 126 mg/dL Ameri can Diabe [facility]ne [facility] iatio n, 2008 Not Available [facility] [address] [facility] [address], [place], [address], 02/12/2024 11:17:38 02/10/20 24 02/10/2024 COMPR EHENS ELIU METAB OLIC PANEL urea nitrogen (BUN) 12 mg/dL 6-20 Not Available [facility] [address] [facility] [address], [place], [address], 02/12/2024 11:17:38 02/10/20 24 02/10/2024 COMPR EHENS ELIU METAB OLIC PANEL creatinine 1.08 mg/dL 0.76-1 .27 Not Available [facility] [address] [facility] [address], [place], [address], 02/12/2024 11:17:38 02/10/20 24 02/10/2024 COMPR EHENS ELIU METAB OLIC PANEL eGFR for nonafrican AM 85 mL/mi nute/ 1.73_ m2 >59 Not Available [facility] [address] [facility] [address], [place], [address], 02/12/2024 11:17:38 02/10/20 24 02/10/2024 COMPR EHENS ELIU METAB OLIC PANEL eGFR for AM 103 mL/mi nute/ 1.73_ m2 >59 MDRD Study Equat ion: The calcu lated GFR is NOT appli cable for pedia tric (< 18 years old) and > 70 year old patie nts and patie nts that are NOT of stead [place] . Not Available [facility] [address] [facility] [address], [place], [address], 02/12/2024 11:17:38 02/10/20 24 02/10/2024 COMPR EHENS ELIU METAB OLIC PANEL calcium 10.0 mg/dL 8.7-10 .2 Not Available [facility] [address] [facility] [address], [place], [address], 02/12/2024 11:17:38 02/10/20 24 02/10/2024 COMPR EHENS ELIU METAB OLIC PANEL protein, total 6.8 gm/dL 6.4-8. 3 Not Available [facility] [address] [facility] [address], [place], [address], 02/12/2024 11:17:38 02/10/20 24 02/10/2024 COMPR EHENS ELIU METAB OLIC PANEL albumin 4.6 gm/dL 3.5-5. [address] [facility] [address] [facility] [address], [place], [address], 02/12/2024 11:17:38 02/10/20 24 02/10/2024 COMPR EHENS ELIU METAB OLIC PANEL bilirubin, total 0.50 mg/dL 0.00-1 .20 Not Available [facility] [address] [facility] [address], [place], [address], 02/12/2024 11:17:38 02/10/20 24 02/10/2024 COMPR EHENS ELIU METAB OLIC PANEL alkaline phosphatase (ALP) 109 U/L 39-117 Not Available [facility] [address] [facility] [address], [place], [address], 02/12/2024 11:17:38 02/10/20 24 02/10/2024 COMPR EHENS ELIU METAB OLIC PANEL aspartate aminotransfe rase (AST) 26 U/L 0-40 Not Available [facility] [address] [facility] [address], [place], [address], 02/12/2024 11:17:38 02/10/20 24 02/10/2024 COMPR EHENS ELIU METAB OLIC PANEL alanine aminotransfe rase (ALT) 36 U/L 0-41 Not Available [facility] [address] [facility] [address], [place], [address], 02/12/2024 11:17:38 02/10/20 24 02/10/2024 COMPR EHENS ELIU METAB OLIC PANEL A/G ratio (calculated) 2.1 ratio 1.0-2. [address] [facility] [address] [facility] [address], [place], [address], 02/12/2024 11:17:38 02/10/20 24 02/10/2024 COMPR EHENS ELIU METAB OLIC PANEL globulin (calculated) 2.2 gm/dL 1.5-3. [address] [facility] [address] [facility] [address], [place], [address], 02/12/2024 11:17:38 02/10/20 24 02/10/2024 COMPR EHENS ELIU METAB OLIC PANEL BUN/creatini ne ratio (calculated) 11.1 ratio 8.0-20 .[address] [facility] [address] [facility] [address], [place], [address], 02/12/2024 11:17:38 02/10/20 24 02/10/2024 COMPR EHENS ELIU METAB OLIC PANEL serum hemolysis index NORMAL index normal Not Available [facility] [address], [place], [address], 02/12/2024 11:17:38 02/10/20 24 02/12/2024 D-DIM ER D-dimer <0.20 mg/L_ feu 0.00-0 .49 normal Accor ding to the assay manuf actur er's publi shed packa ge inser t, a sylvia l (<0.5 0 mg/L FEU) D-dim er resul t in conju nctio n with a non-h igh clini argelia proba bilit y asses sment , exclu wilfred deep vein throm bosis (DVT) and pulmo nary embol ism (PE) with high sensi tivit y. D-dim er value s incre ase with age and this can make VTE exclu julia of an older popul ation diffi cult. To addre ss this, the [employer]i cians , based on best avail able evide nce and recen t guide lines , recom mends that clini cians use age-a djust ed D-dim er thres holds in patie nts great er than 50 years of age with: a) a low proba bilit y of PE who do not meet all Pulmo nary Embol ism Rule Out Crite rashawn, or b) in those with inter media te proba bilit y of PE. The formu la for an age-a djust ed D-dim er cut-o ff is age/ 100. For examp le, a 60 year old patie nt would have an age-a djust ed cut-o ff of 0.60 mg/L FEU and an 80 year old 0.80 mg/L FEU. Not Available [facility] [address], [place], [address], 02/12/2024 11:17:39 01/04/20 24 01/05/2024 elect jeaneth sanders am No observ ation record ed. [facility], [facility] [address], [place], [address], 02/10/2024 09:44:29 01/04/20 24 01/04/2024 US, echoc ardio gram No observ ation record ed. [facility], [facility] [address], [place], [address], 02/10/2024 09:44:30 01/04/20 24 01/04/2024 edmundo ed testi ng* No observ ation record ed. [facility] [address], [place], [address], 02/10/2024 09:44:30 01/05/20 24 01/04/2024 elect jeaneth sanders am No observ ation record ed. [facility] [address], [place], [address], 02/10/2024 09:44:30 02/09/20 24 02/09/2024 home sleep study No observ ation record ed. [facility] [address], [place], [address], 02/10/2024 09:44:29 02/09/20 24 02/09/2024 home sleep study No observ ation record ed. [facility] [address], [place], [address], 02/10/2024 09:44:29 02/10/20 24 02/10/2024 US, echoc ardio gram No observ ation record ed. [facility] [address], [place], [address], 05/18/2025 14:29:40 04/06/20 24 03/30/2024 US, echoc ardio gram No observ ation record ed. [facility] [address], [place], [address], 05/18/2025 14:29:40 Result Notes None recorded. Problems Name Problem SNOMED Code Status Onset Date Resolution Date Notes Provider Name and Address Organization Details Recorded Time Acute diarrhea 992065587 Active 2024 Adriana Iraheta MD [address], [place], [address] , [facility] 5 14:43:52 Marijuana user 163684298 Active 2023 Not Available [facility] 4 18:53:29 Snoring 05702134 Active 2023 Adriana Iraheta MD [address], [place], [address] , [facility] 5 14:28:10 Mixed anxiety and depressive disorder 027570309 Active 2023 Not Available [facility] 4 18:53:29 Electronic cigarette user 205217666 Active 2023 Not Available [facility] 4 18:53:29 Family history of Cardiovasc ular disease 701498871 Active 2023 Not Available [facility] 4 18:53:29 History of alcohol abuse 583451371 Active 2023 Not Available [facility] 4 18:53:29 Body mass index 30+ - obesity 202785436 Active 2023 Not Available [facility] 4 18:53:29 Acne 60385738 Active 2023 Not Available [facility] 4 18:53:29 Tattoo of skin 252318335274 Active 2023 Not Available [facility] 4 18:53:29 Alanine aminotrans ferase above reference range 321662926 Active 2023 Adriana Iraheta MD [address], [place], [address] , [facility] 4 18:29:00 Serum creatinine above reference range 789897864 Active 2023 Adriana Iraheta MD [address], [place], [address] , [facility] 4 18:29:02 Swati cornelius 8162663 Active 2023 Adriana Iraheta MD [address], [place], [address] , [facility] 4 09:47:17 Problem Notes None recorded. Medical Equipment None Reported. Allergies No known drug allergies Medications Name Sig Start Date Stop Date Status Note LastModified by Organization Details LastModified Time Saline Mist 0.65 % nasal spray aerosol Take 2 sprays 4 times a day by nasal route. 02/09 completed Not Available Not Available Not Available azithromyci n 250 mg tablet TAKE 2 TABLETS BY MOUTH TODAY, THEN TAKE 1 TABLET DAILY FOR 4 DAYS DIRECTED 05/18 completed Not Available Not Available Not Available hydrocodone 5 mg-acetamin ophen 325 mg tablet TAKE 1 TABLET BY MOUTH EVERY 6 HOURS NEEDED FOR PAIN 01/04 completed Not Available Not Available Not Available cephalexin 500 mg capsule TAKE 1 CAPSULE BY MOUTH FOUR TIMES A DAY 01/04 completed Not Available Not Available Not Available oseltamivir 75 mg capsule 02/09 completed Not Available Not Available Not Available buspirone 10 mg tablet Take 1 tablet 3 times a day by oral route as needed. 2024 active Not Available Not Available Not Avai lable metoprolol succinate ER 25 mg tablet,exte nded release 24 hr Take 1 tablet every day by oral route in the morning. 2024 active Not Available Not Available Not Avai lable methylpredn isolone 4 mg tablets in a dose pack TAKE 6 TABLETS ON DAY 1 DIRECTED ON PACKAGE AND DECREASE BY 1 TAB EACH DAY FOR A TOTAL OF 6 DAYS 05/18 completed Not Available Not Available Not Available albuterol sulfate HFA 90 mcg/actuati on aerosol inhaler INHALE 2 PUFFS BY MOUTH EVERY 4-6 HOURS NEEDED active Not Available Not Available No t Available ondansetron 4 mg disintegrat ing tablet 02/09 completed Not Available Not Available Not Available escitalopra m 10 mg tablet TAKE 1 TABLET BY MOUTH EVERYDAY AT BEDTIME active Not Available Not Available No t Available Vraylar 1.5 mg capsule Take 1 capsule every day by oral route. 05/24 completed Not Available Not Available Not Available Vitals Date Recorded Heart rate Body weight Body mass index (BMI) Body height Body temperature Respiratory rate Systolic And Diastolic Provider Name and Address Organization Details Last Updated DateTime 4 101 /min 384874. 54 g 31.3 kg/m2 187.96 cm 98.2 [degF] 16 /min 143/88 mm[Hg] [facility] 4 14:52:43 Date Recorded Body height Body temperature Body mass index (BMI) Body weight Respiratory rate Heart rate Systolic And Diastolic Provider Name and Address Organization Details Last Updated DateTime 4 187.96 cm 97.5 [degF] 32.5 kg/m2 191683. 87 g 16 /min 79 /min 140/82 mm[Hg] [facility] 4 09:24:15 Date Recorded Body mass index (BMI) Body height Heart rate Respiratory rate Body temperature Systolic And Diastolic Provider Name and Address Organization Details Last Updated DateTime 5 33.3 kg/m2 187.96 cm 110 /min 16 /min 98.7 [degF] 135/92 mm[Hg] [facility] 5 14:05:00 Date Recorded Body weight Provider Name an d Address Organization Details Last Updated DateTime 05/18/2025 800870.42 g Yajairasharon [facility] 05/18/2025 14:03:47 Social History Question Answer Notes LastModified by Organizat ion Details LastModified Time Tobacco Smoking Status Former Smoker quit 11/2023 Adriana Iraheta MD [address] [facility] [address], [place], [address], [facility] 01/04/2024 15:21:27 What Is Your Level Of Caffeine Consumption? Moderate Information not available 01/04/2024 What Is The Highest Grade Or Level Of School You Have Completed Or The Highest Degree You Have Received? [id number] Information not available 01/04/2024 What Is Your Relationship Status? Single Information not available 01/04/2024 Do You Use Your Seat Belt Or Car Seat Routinely? Yes Information not available 01/04/2024 At What Age Did You Start Smoking Tobacco? 15 Information not available 01/04/2024 How Much Tobacco Do You Smoke? 0.5 PPD Information not available 01/04/2024 Sex: Unknown Functional Status Question Answer Note LastModified by Organizat ion Details LastModified Time Do you use any illicit or recreational drugs? Yes marijuana Information not available 01/04/2024 What is your level of alcohol consumption? 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 Yes Information not available 01/04/2024 What is your exercise level? Moderate Information not available 01/04/2024 Mental Status Question Answer Note LastModified by Organization D etails LastModified Time Do you feel stressed (tense, restless, nervous, or anxious, or unable to sleep at night)? [id number] Information not available 01/04/2024 Family History Relationship Description Onset Age of this Age Resolved Age Notes LastModified by Organization Details LastModified Time Mother Malignant neoplastic disease 37 [email or web address] Not available 2023 15:12:53 Father Coronary arterioscler osis 50 [email or web address] Not available 2023 15:13:06 Medical History No medical history recorded. Immunizations Vaccine Type Date Status Note Provider Nam e and Address Organization Details Recorded Time Td(adult) unspecified formulation 0 completed Not Available [facility] 01/06/2024 18:53:29 Past Encounters Encounter ID Performer Location Encounter Start Date Encounter Closed Date Diagnosis/Indication Diagnosis SNOMED-CT Code Diagnosis ICD10 Code Diagnosis Note [id number] Adriana Iraheta MD [facility], [facility] [address] [place] [address] 01/04/2024 13:53:13 01/04/2024 15:56:22 Adult health examination 891999244 Z00.01 Tachycardia 2327942 R00. 0 Mixed anxi ety and depressive disorder 070035367 F41.8 No SI , No HI Snoring 09619432 R06.83 Marijuana user 783053414 F12.90 per pt stopped after ER visit last month Family his tory of Cardiovascular disease 394370261 Z82.49 check EKG Electronic cigarette user 980872486 Z72.89 History of alcohol abuse 398761649 F10.10 quit 11/2023 Active or passive immunization 608250172 Z23 Pt will bring shot records Body mass index 30+ - obesity 229016578 Z68.31 Anterior epistaxis 28155 4002 R04.0 Acne 24215476 L70.9 back Tattoo of skin 209008079 1 02 L81.8 [id number] Adriana Iraheta MD [facility] [address] [place] [address] 02/10/2024 09:14:43 02/10/2024 10:07:09 Mixed anxiety and depressive disorder 293407574 F41.8 No SI , No HIform 1 page done today Tachycardia 9185789 R00. 0 Atypical chest pain 1025 53094 R07.89 cardiology Active or passive immunization 931477359 Z23 Pt will bring shot records Body mass index 30+ - obesity 854997016 Z68.31 education [id number] Adriana Iraheta MD [facility] [address] [place] [address] 05/18/2025 13:52:29 05/18/2025 14:49:35 Adult health examination 350267600 Z00.01 Mixed anxi ety and depressive disorder 770418645 F41.8 No SI , No HIform 3 page done today ,1 week off work Tachycardia 7190903 R00. 0 Atypical chest pain 1025 72453 R07.89 cardiology Body mass index 30+ - obesity 022704256 Z68.31 education Active or passive immunization 121268834 Z23 Pt will bring shot records Snoring 43602862 R06.83 Acne 61478736 L70.9 back Electronic cigarette user 857440249 Z72.89 Acute diarrhea 037856599 R19.7 Health Concerns Section Related Observation LastModified by Organization Detai ls LastModified Time None Recorded Concern Status LastModified by Organization Details LastModified Time None Recorded Advance Directives Directive None Recorded Payers Insurance Date Sequence Insurance Name Policy Number Policy Velasquez Covered Member ID Velasquez Member ID Guarantor Name 05/18/2025 1 [place] [id number] F Johanna Johansen [id number] Johanna Johansen Notes Date Note Type Note Provider Name and Address Organization Details Recorded Time 01/04/2024 text/html Hypertension F/UReported bypatient.Medications: taking medications as directed; no side effects from medication Lifestyle:regular exercise; limiting/avoiding salt; compliant with low salt diet Associated Symptoms:no dizziness; no lightheadedness; no chest pain; no shortness of breath; no palpitations; no edema; no calf pain with exertion; no headacheMedicare Annual Wellness VisitReported bypatient.Diet and Nutrition:healthy diet Fracture Risk:no history of fractures; no recent explained fracture; no sudden unexplained fractures; no previous musculoskeletal injuries Physical Activity:recent increase in physical activity; good physical condition; discussed exercise habits Depression Risk:never feels sad, empty, or tearful; no loss of interest in activities; no significant changes in weight; no sleep disturbances or insomnia; no agitation; no loss of energy; no feelings of worthlessness or guilt; no thoughts of suicide; no history of depression; no history of mood disorders Orientation:no disorientation to time; no disorientation to date; no disorientation to place Concentration and Memory:no decreased concentrating ability; no memory lapses or loss; does not forget words Speech/Motor difficulties:no speech difficulties; no difficulty expressing formulated concepts; no difficulty with fine manipulative tasks; no difficulty writing/copying; no slowed reaction time; does not knock things over when trying to pick them up Hearing:no loss of hearing Vision:no vision problems Falls Risk Assessment:no frequent falls while walking; no fall in the past year; no dizziness/vertigo Home Safety:use of seatbelts; no vision or hearing loss while driving Adriana Iraheta MD [address] [place] [address] [address], [place], [address], [facility] 01/04/2024 15:33:46 02/10/2024 text/html Hypertension F/UReported bypatient.Medications: taking medications as directed; no side effects from medication Lifestyle:regular exercise; limiting/avoiding salt; compliant with low salt diet Associated Symptoms:no dizziness; no lightheadedness; no chest pain; no shortness of breath; no palpitations; no edema; no calf pain with exertion; no headache Adriana Irhaeta MD [address], [place], [address], [facility] 02/10/2024 09:55:55 05/18/2025 text/html Hypertension F/UReported bypatient.Medications: taking medications as directed; no side effects from medication Lifestyle:regular exercise; limiting/avoiding salt; compliant with low salt diet Associated Symptoms:no dizziness; no lightheadedness; no chest pain; no shortness of breath; no palpitations; no edema; no calf pain with exertion; no headacheMedicare Annual Wellness VisitReported bypatient.Diet and Nutrition:healthy diet Fracture Risk:no history of fractures; no recent explained fracture; no sudden unexplained fractures; no previous musculoskeletal injuries Physical Activity:recent increase in physical activity; good physical condition; discussed exercise habits Depression Risk:never feels sad, empty, or tearful; no loss of interest in activities; no significant changes in weight; no sleep disturbances or insomnia; no agitation; no loss of energy; no feelings of worthlessness or guilt; no thoughts of suicide; no history of depression; no history of mood disorders Orientation:no disorientation to time; no disorientation to date; no disorientation to place Concentration and Memory:no decreased concentrating ability; no memory lapses or loss; does not forget words Speech/Motor difficulties:no speech difficulties; no difficulty expressing formulated concepts; no difficulty with fine manipulative tasks; no difficulty writing/copying; no slowed reaction time; does not knock things over when trying to pick them up Hearing:no loss of hearing Vision:no vision problems Falls Risk Assessment:no frequent falls while walking; no fall in the past year; no fall since last visit; no dizziness/vertigo Home Safety:use of seatbelts; no vision or hearing loss while driving depression , panic attacks , went to ER 05/17/26 ,diarrhea 2 weeks Adriana Iraheta MD [address], [place], [address], [facility] 05/18/2025 14:44:50
[2025-05-31 14:25] VITALS: BP 132/83; PULSE 118; RESP 20; TEMP 36.7; O2SAT 100
== END 2025-05-31 15:36 | disposition home or self-care (01) ==
PROVIDERS: Emergency Provider Emergency Medicine
DX: R07.9 Chest pain, unspecified (principal); R00.2 Palpitations; E86.0 Dehydration; R00.0 Tachycardia, unspecified
CPT/HCPCS: 36415; 71046; 80053; 83690; 84484; 85025; 85380; 85610; 85730; 93005; 96361; 96374; 99284; J2060; J7120